=== PATIENT | male | born 1970 | race Two or more races ===

== ENCOUNTER 2016-12-30 17:59 | Emergency (ER) | payer OTHER ==
[2016-12-30 18:56] LABS: ABSOLUTE NEUTROPHIL COUNT 4.4 K/mm3 (1.8-7.7); BASO % 0.5 % (0.2-1.0); EOS # 0.2 (0.0-0.5); EOS % 2.2 % (0.9-2.9); HEMOGLOBIN 14.9 gm/l (14.0-18.0); IMM NEUT% 0.3 % (0-1); LYMPH # 2.6 (1.0-4.8); LYMPH % 33.3 % (15-45); MEAN CELL VOLUME 84.7 fl (80.0-94.0); MEAN CORPUSCULAR HGB CONC 35.5 g/dl (33.0-37.0); MEAN PLATELET VOLUME 9.1 fl (7.4-10.4); MONO # 0.5 (0.0-0.8); MONO % 6.6 % (4-12); NEUT % 57.1 % (43-75); PLATELET COUNT 314 K/mm3 (130-400); RED CELL DISTRIBUTION WIDTH 12.1 % (11.5-14.5)
[2016-12-30 19:07] LABS: ALB/GLOB RATIO 1.3 (>1.0); ALBUMIN 4.1 gm/dL (3.5-5.7); CALCIUM 9.7 mg/dL (8.6-10.3); MAGNESIUM 1.9 mg/dL (1.9-2.7)
[2016-12-30 19:12] LABS: TROPONIN I 0.02 ng/ml (0.0-0.06)
[2016-12-30 19:16] LABS: CKMB ISOENZYME 1.8 ng/ml (0.6-6.3)
--- NOTE | 2016-12-30 19:27 | RAD ---
CHEST - 2 VIEWS COMPARISON: None. HISTORY: Patient with left-sided chest pain and left arm pain for 4 days. Intermittent diaphoresis. FINDINGS: Views: Frontal and lateral chest Lungs: Normal Heart and vessels: Normal Trachea and bronchi: Normal Mediastinum and ken: Normal Costophrenic sulci: Normal Chest wall and bones: Normal. Upper abdomen: Normal. IMPRESSION: Negative 2 view chest.
== END 2016-12-30 21:37 | disposition home or self-care (01) ==
LOC: ED 17:59
DX: R07.9 Chest pain, unspecified (principal); R06.02 Shortness of breath; R00.1 Bradycardia, unspecified